=== PATIENT | male | born 1975 | race Two or more races ===

== ENCOUNTER 2017-04-11 14:49 | Emergency (ER) | payer SELFPAY ==
[~2017-04-11] VITALS: Ht 170.2 cm; Wt 79.4 kg
[2017-04-11 15:15] VITALS: BP 116/85
[2017-04-11] MEDS ORDERED: TETANUS-DIPTH-ACEL PERTUSSIS 0.5ML SYRG IM ONE (16:00)
[2017-04-11] MEDS ORDERED: HYDROcodone-ACET 10/325MG TAB PO ONE (16:00)
[2017-04-11] MEDS ORDERED: cefTRIAXone SOD 1,000 MG VL IM ONE (16:00)
[2017-04-11] MEDS ORDERED: NEOMYCIN-BACITRACIN-POLYM UNITDOSE PKG TOP OINT TOP ONE (16:15)
== END 2017-04-11 16:35 | disposition home or self-care (01) ==
LOC: ER 14:49
DX: S62.637B Displaced fracture of distal phalanx of left little finger, initial encounter for open fracture (principal); W22.8XXA Striking against or struck by other objects, initial encounter; Y93.89 Activity, other specified; Y99.8 Other external cause status; Y92.89 Other specified places as the place of occurrence of the external cause
CPT/HCPCS: 29130; 73140; 90471; 90715; 96372; 99284; J0696

== ENCOUNTER 2017-04-13 08:46 | Emergency (ER) | payer SELFPAY ==
[~2017-04-13] VITALS: Ht 170.2 cm; Wt 79.4 kg
[2017-04-13 09:46] VITALS: BP 122/65
== END 2017-04-13 10:20 | disposition home or self-care (01) ==
LOC: ER 08:46
DX: S61.237D Puncture wound without foreign body of left little finger without damage to nail, subsequent encounter (principal)

== ENCOUNTER 2021-08-03 07:41 | Emergency (ER) | payer OTHER ==
[~2021-08-03] VITALS: Ht 170.2 cm; Wt 77.1 kg
[2021-08-03 08:18] VITALS: BP 131/84
[2021-08-03] MEDS ORDERED: BENZ100C19 PO (08:52)
[2021-08-03] MEDS ORDERED: AMOX-277 PO (08:52)
== END 2021-08-03 10:04 | disposition home or self-care (01) ==
LOC: ER 07:41
DX: U07.1 COVID-19 (principal); J06.9 Acute upper respiratory infection, unspecified
CPT/HCPCS: 36415; 71045; 87426